=== PATIENT | female | born 1940 | race Caucasian/White ===

== ENCOUNTER 2019-06-07 12:55 | Inpatient (IN) | payer MEDICARE ==
[~2019-06-07] VITALS: Ht 162.6 cm; Wt 78.7 kg
[~2019-06-07 12:55] MED LIST: ALBU8.5H8 INH; APIX5TAB PO; ATOR40TA PO; BISO5TAB2 PO; CHLORTHALIDONE PO; EVER7.5T PO; FLUT1DIS28 INH; LEVO100T10 PO
[2019-06-07 13:20] LABS: BASOPHILS # (AUTO) 0.1 K/uL (0.0-8.0); EOSINOPHILS # (AUTO) 0.1 K/uL (0.0-0.7); EOSINOPHILS % (AUTO) 1.1 % (0.0-7.0); HEMATOCRIT 36.7 % (31.2-41.9); HEMOGLOBIN 11.8 g/dL (10.9-14.3); LYMPHOCYTES # (AUTO) 1.5 K/uL (20.0-40.0); LYMPHOCYTES % (AUTO) 14.7 % (20.5-51.5); MEAN CORPUSCULAR HEMOGLOBIN 28.7 uug (24.7-32.8); MEAN CORPUSCULAR HGB CONC 32 g/dL (32.3-35.6); MEAN CORPUSCULAR VOLUME 89.5 fL (75.5-95.3); MONOCYTES # (AUTO) 0.8 K/uL (2.0-10.0); MONOCYTES % (AUTO) 7.5 % (0.0-11.0); NEUTROPHILS # (AUTO) 7.7 K/uL (1.8-8.9); NEUTROPHILS % (AUTO) 75.7 % (38.5-71.5); PLATELET COUNT (AUTO) 221 K/uL (179-408); WHITE BLOOD COUNT (AUTO) 10.1 K/uL (3.8-11.8)
[2019-06-07] MEDS ORDERED: FLUT1BLS4 IH (13:21)
[2019-06-07] MEDS ORDERED: METOPROLOL (13:21)
[2019-06-07] MEDS ORDERED: FOLI1TAB16 PO (13:21)
[2019-06-07] MEDS ORDERED: CHOL200074 PO (13:21)
[2019-06-07] MEDS ORDERED: MONT10TA22 PO (13:21)
[2019-06-07] MEDS ORDERED: WARF5TAB77 PO (13:21)
[2019-06-07] MEDS ORDERED: FEBU40TA PO (13:21)
[2019-06-07] MEDS ORDERED: FURO-151 PO (13:21)
[2019-06-07] MEDS ORDERED: WARF6TAB23 PO (13:21)
[2019-06-07] MEDS ORDERED: DILT-32 PO (13:21)
[2019-06-07 13:28] LABS: CARBON DIOXIDE 27 mmol/L (21-32); CHLORIDE 104 mmol/L (98-107); CREATININE 1.6 mg/dL (0.6-1.3); GLUCOSE 99 mg/dL (74-106); UREA NITROGEN, BLOOD 26 mg/dL (7-18)
[2019-06-07] MEDS ORDERED: IV NS 1000 ML 1,000 ML IV ONE (13:30)
[2019-06-07] MEDS ORDERED: IV NORMAL SALINE 250 ML BAG IV ONE (13:30)
[2019-06-07 13:33] LABS: ALANINE AMINOTRANSFERASE 24 U/L (14-59); ALKALINE PHOSPHATASE 63 U/L (50-136); ASPARTATE AMINOTRANSFERASE 22 U/L (15-37); BILIRUBIN,DIRECT 0.3 mg/dL (0.0-0.2); BILIRUBIN,TOTAL 1.6 mg/dL (0.2-1.0); TOTAL PROTEIN, SERUM 7.8 g/dL (6.4-8.2)
[2019-06-07 14:29] LABS: *BILIRUBIN,URIN NEGATIVE (NEGATIVE); *CLARITY,URINE CLEAR (CLEAR); *COLOR,URINE YELLOW (YELLOW); *KETONES,URINE NEGATIVE (NEGATIVE); *UROBILINOGEN,URINE 0.2 E.U./dl (NORMAL); LEUKOCYTE ESTERASE ,URINE NEGATIVE (NEGATIVE); NITRITE, URINE NEGATIVE (NEGATIVE); PH,URINE 7.5 (5.0-8.0); UGLUCOSE NEGATIVE (NEGATIVE)
[2019-06-07] MEDS ORDERED: METOPROLOL TARTRATE 5 MG/5 ML VIAL IVP ONE ×4 (14:30→15:15)
[2019-06-07 14:37] LABS: *BLOOD, URINE TRACE (NEGATIVE)
[2019-06-07 14:38] LABS: RBC,URINE 0-3 /HPF (0-3); SQUAMOUS EPITHELIAL CELL,UR FEW /HPF (NONE SEEN); WBC,URINE 0-3 /HPF (0-3)
[2019-06-07] MEDS ORDERED: ONDA4TAB5 PO (14:47)
[2019-06-07] MEDS ORDERED: VITA1CAP PO (14:47)
[2019-06-07] MEDS ORDERED: CALC0.253 PO (14:47)
[2019-06-07] MEDS ORDERED: HYDR-3326 PO (14:47)
[2019-06-07] MEDS ORDERED: LOSA25TA27 PO (14:47)
[2019-06-07] MEDS ORDERED: VOLTAREN 1% GEL TOP (14:47)
[2019-06-07] MEDS ORDERED: METO25TA6 PO (14:47)
[2019-06-07] MEDS ORDERED: TRAM50TA2 PO (14:47)
[2019-06-07] MEDS ORDERED: ACET-2605 PO (14:47)
[2019-06-07] MEDS ORDERED: OMEP20TA5 PO (14:47)
[2019-06-07] MEDS ORDERED: LORA10TA7 PO (14:47)
[2019-06-07] MEDS ORDERED: IPRA3AMP23 IH (14:47)
[2019-06-07] MEDS ORDERED: OMEG1CAP40 PO (14:47)
[2019-06-07] MEDS ORDERED: FERR325T28 PO (14:47)
[2019-06-07] MEDS ORDERED: ASPI81TA31 PO (14:47)
[2019-06-07] MEDS ORDERED: MAGNESIUM HYDROXIDE 30 ML LIQUID UDC PO PRN (15:45)
[2019-06-07] MEDS ORDERED: HYDROCODONE/APAP 5-325MG TABLET PO PRN (15:45)
[2019-06-07] MEDS ORDERED: ONDANSETRON 4 MG/2 ML VIAL IV PRN (15:45)
[2019-06-07] MEDS ORDERED: ACETAMINOPHEN 325 MG TABLET PO PRN (15:45)
[2019-06-07] MEDS ORDERED: Z GUARD REMEDY PASTE 57 GM TUBE TOP PRN (15:45)
[2019-06-07 16:01] VITALS: BP 139/80
[2019-06-07] MEDS: IV D5 1/2 NS 1000 ML 1,000 ML IV PRN (16:34)
[2019-06-07 20:00] VITALS: BP 132/74
[2019-06-07] MEDS ORDERED: WARFARIN SODIUM 5 MG TABLET PO ONE (21:48)
[2019-06-07] MEDS: ZOLPIDEM 5 MG TABLET PO PRN (21:55)
[2019-06-08 00:58] VITALS: BP 125/62
[2019-06-08 04:00] VITALS: BP 129/75
[2019-06-08] MEDS: IV D5 1/2 NS 1000 ML 1,000 ML IV PRN ×2 (05:14→19:22)
[2019-06-08 06:38] LABS: BASOPHILS # (AUTO) 0.1 K/uL (0.0-8.0); BASOPHILS % (AUTO) 0.8 % (0.0-2.0); EOSINOPHILS # (AUTO) 0.2 K/uL (0.0-0.7); EOSINOPHILS % (AUTO) 2.5 % (0.0-7.0); HEMATOCRIT 32.8 % (31.2-41.9); LYMPHOCYTES # (AUTO) 1.6 K/uL (20.0-40.0); LYMPHOCYTES % (AUTO) 19.7 % (20.5-51.5); MEAN CORPUSCULAR HEMOGLOBIN 30.6 uug (24.7-32.8); MEAN CORPUSCULAR HGB CONC 34 g/dL (32.3-35.6); MEAN CORPUSCULAR VOLUME 90.8 fL (75.5-95.3); MONOCYTES # (AUTO) 0.8 K/uL (2.0-10.0); MONOCYTES % (AUTO) 9.8 % (0.0-11.0); NEUTROPHILS # (AUTO) 5.6 K/uL (1.8-8.9); NEUTROPHILS % (AUTO) 67.2 % (38.5-71.5); PLATELET COUNT (AUTO) 201 K/uL (179-408); RED BLOOD CELL COUNT(AUTO) 3.61 MIL/uL (3.63-4.92); WHITE BLOOD COUNT (AUTO) 8.3 K/uL (3.8-11.8)
[2019-06-08 06:43] LABS: CARBON DIOXIDE 25 mmol/L (21-32); CHLORIDE 109 mmol/L (98-107); CHOLESTEROL 152 mg/dL (<200); CREATININE 1.3 mg/dL (0.6-1.3); GLUCOSE 95 mg/dL (74-106); HDL CHOLESTEROL 51 mg/dL (40-60); MAGNESIUM 1.8 mg/dL (1.8-2.4); PHOSPHOROUS 3.1 mg/dL (2.5-4.9); POTASSIUM 3.4 mmol/L (3.5-5.1); TRIGLYCERIDES 111 MG/DL (30-150); UREA NITROGEN, BLOOD 18 mg/dL (7-18)
[2019-06-08] MEDS ORDERED: ONDANSETRON 4 MG/2 ML VIAL IV PRN (08:00)
[2019-06-08] MEDS ORDERED: Medication Not On Formulary EA (Warfarin Sodium (Coumadin) 6 MG) PO SCH (10:00)
[2019-06-08] MEDS ORDERED: ALBUTEROL SULFATE 8 GM HFA.AER.AD INH PRN (10:00)
[2019-06-08] MEDS ORDERED: LORATADINE 10 MG TABLET PO PRN (10:00)
[2019-06-08] MEDS ORDERED: TRAMADOL HCL 50 MG TABLET PO PRN (10:00)
[2019-06-08] MEDS ORDERED: ALBUTEROL SULFATE 2.5 MG/3 ML NEBU NEB PRN (11:00)
[2019-06-08 11:52] VITALS: BP 115/59
[2019-06-08] MEDS ORDERED: DICLOFENAC TOP SCH (13:00)
[2019-06-08] MEDS ORDERED: POTASSIUM CHLORIDE 20 MEQ TAB.PRT.SR PO ONE (13:15)
[2019-06-08 15:50] VITALS: BP 145/85
[2019-06-08 19:56] VITALS: BP 139/83
[2019-06-08] MEDS: ZOLPIDEM 5 MG TABLET PO PRN (20:57)
[2019-06-08] MEDS: METOPROLOL TARTRATE 25 MG TABLET PO SCH (20:57)
[2019-06-08] MEDS ORDERED: ATORVASTATIN 40 MG TABLET PO SCH (21:00)
[2019-06-08] MEDS ORDERED: WARFARIN SODIUM 5 MG TABLET PO ONE (22:45)
[2019-06-09] VITALS: BP 131/83
[2019-06-09 04:00] VITALS: BP 149/91
[2019-06-09 06:30] LABS: BASOPHILS # (AUTO) 0.1 K/uL (0.0-8.0); EOSINOPHILS # (AUTO) 0.3 K/uL (0.0-0.7); EOSINOPHILS % (AUTO) 3.3 % (0.0-7.0); HEMATOCRIT 32.4 % (31.2-41.9); HEMOGLOBIN 10.7 g/dL (10.9-14.3); LYMPHOCYTES # (AUTO) 1.9 K/uL (20.0-40.0); LYMPHOCYTES % (AUTO) 22.8 % (20.5-51.5); MEAN CORPUSCULAR HEMOGLOBIN 30.2 uug (24.7-32.8); MEAN CORPUSCULAR HGB CONC 33 g/dL (32.3-35.6); MEAN CORPUSCULAR VOLUME 91.4 fL (75.5-95.3); MONOCYTES # (AUTO) 0.9 K/uL (2.0-10.0); MONOCYTES % (AUTO) 10.3 % (0.0-11.0); NEUTROPHILS # (AUTO) 5.3 K/uL (1.8-8.9); NEUTROPHILS % (AUTO) 62.6 % (38.5-71.5); PLATELET COUNT (AUTO) 211 K/uL (179-408); RED BLOOD CELL COUNT(AUTO) 3.55 MIL/uL (3.63-4.92); WHITE BLOOD COUNT (AUTO) 8.5 K/uL (3.8-11.8)
[2019-06-09 06:43] LABS: CARBON DIOXIDE 26 mmol/L (21-32); CHLORIDE 111 mmol/L (98-107); CREATININE 1.3 mg/dL (0.6-1.3); GLUCOSE 100 mg/dL (74-106); MAGNESIUM 1.9 mg/dL (1.8-2.4); PHOSPHOROUS 3.4 mg/dL (2.5-4.9); UREA NITROGEN, BLOOD 12 mg/dL (7-18)
[2019-06-09] MEDS ORDERED: PANTOPRAZOLE SODIUM 40 MG TABLET.DR PO SCH (07:00)
[2019-06-09] MEDS ORDERED: FERR325T28 PO (08:37)
[2019-06-09] MEDS ORDERED: CIPR250T4 PO (08:37)
[2019-06-09] MEDS ORDERED: METR-147 PO (08:37)
[2019-06-09] MEDS ORDERED: ASPIRIN 81 MG TAB.CHEW PO SCH (09:00)
[2019-06-09] MEDS ORDERED: DILTIAZEM HCL SR 60 MG CAP.SR.12H PO SCH (09:00)
[2019-06-09] MEDS ORDERED: CIPROFLOXACIN HCL 250 MG TABLET PO SCH (09:00)
[2019-06-09] MEDS ORDERED: Medication Not On Formulary EA (Omega-3 Fatty Acids/Fish Oil (Omega 3 1,000 Mg Softgel) PO SCH (09:00)
[2019-06-09] MEDS ORDERED: DILTIAZEM HCL CD 120 MG CAP.SR.24H PO SCH (09:00)
[2019-06-09] MEDS ORDERED: FOLIC ACID 1 MG TABLET PO SCH (09:00)
[2019-06-09] MEDS ORDERED: MONTELUKAST SODIUM 10 MG TABLET PO SCH (09:00)
[2019-06-09] MEDS ORDERED: LOSARTAN POTASSIUM 25 MG TABLET PO SCH (09:00)
[2019-06-09] MEDS ORDERED: CHOLECALCIFEROL 1,000 UNIT TABLET PO SCH (09:00)
[2019-06-09] MEDS ORDERED: CALCITRIOL 0.25 MCG CAPSULE PO SCH (09:00)
[2019-06-09] MEDS ORDERED: OMEGA-3 FATTY ACIDS/FISH OIL CAPSULE PO SCH (09:00)
[2019-06-09] MEDS ORDERED: FERROUS SULFATE 325 MG TABEC PO SCH (09:00)
[2019-06-09] MEDS ORDERED: VITAMIN B COMPLEX 1 TABLET PO SCH (09:00)
[2019-06-09] MEDS ORDERED: Medication Not On Formulary EA (Omeprazole 20 MG) PO SCH (09:00)
[2019-06-09] MEDS: METOPROLOL TARTRATE 25 MG TABLET PO SCH (10:25)
[2019-06-09 12:08] VITALS: BP 130/83
[2019-06-09] MEDS ORDERED: METRONIDAZOLE 500 MG TABLET PO SCH (14:00)
[2019-06-09 15:49] VITALS: BP 108/66
[2019-06-09] MEDS ORDERED: WARFARIN SODIUM 5 MG TABLET PO SCH (17:00)
[2019-06-10] MEDS ORDERED: WARFARIN SODIUM 2 MG TABLET PO SCH (17:00)
== END 2019-06-09 16:45 | DRG 308 ==
LOC: ER 12:56 → TELE3 15:31
PROVIDERS: ADMIT Student in an Organized Health Care Education/Training Program; ATTEND Student in an Organized Health Care Education/Training Program
PROC: 3E033RZ Introduction of Antiarrhythmic into Peripheral Vein, Percutaneous Approach (ICD-10-PCS; principal; 2019-06-07)
DX: I48.91 Unspecified atrial fibrillation (principal); N17.0 Acute kidney failure with tubular necrosis; N39.0 Urinary tract infection, site not specified; D68.59 Other primary thrombophilia; Z79.01 Long term (current) use of anticoagulants; E03.9 Hypothyroidism, unspecified; Z79.890 Hormone replacement therapy; E86.0 Dehydration; K52.9 Noninfective gastroenteritis and colitis, unspecified; M81.0 Age-related osteoporosis without current pathological fracture; E05.90 Thyrotoxicosis, unspecified without thyrotoxic crisis or storm; T88.7XXA Unspecified adverse effect of drug or medicament, initial encounter; T38.1X5A Adverse effect of thyroid hormones and substitutes, initial encounter; Y92.099 Unspecified place in other non-institutional residence as the place of occurrence of the external cause; Z79.82 Long term (current) use of aspirin; J98.4 Other disorders of lung; Z99.81 Dependence on supplemental oxygen; N18.9 Chronic kidney disease, unspecified; J45.909 Unspecified asthma, uncomplicated; Z79.899 Other long term (current) drug therapy; Z79.51 Long term (current) use of inhaled steroids; I70.0 Atherosclerosis of aorta; F32.9 Major depressive disorder, single episode, unspecified; K57.90 Diverticulosis of intestine, part unspecified, without perforation or abscess without bleeding
CPT/HCPCS: 36415; 70030-TC; 71045; 83735; 84100; 84443; 85025; 85610; 85730; 87086; 93005; 93307; A4663; G0378; J2405; J3490; J7030